=== PATIENT | male | born 1985 | race Caucasian/White ===

== ENCOUNTER 2019-11-24 00:15 | Inpatient (IN) | payer OTHER ==
[2019-11-24 01:19] VITALS: BMI 31.7
--- NOTE | 2019-11-24 01:33 | PDOC ---
Attending Attestation - Resident Resident Name: Perez Stephen - ED Attending Attestation I have performed the following: I have examined & evaluated the patient, The case was reviewed & discussed with the resident, I agree w/resident's findings & plan - HPI HPI: 11/24/19 04:53 see resident hpi - Physicial Exam PE: 11/24/19 04:53 agree with resident exam - Medical Decision Making 11/24/19 04:54 34-year-old male with history of A. fib complaining of palpitations Patient took a dose of flecainide at home without relief Patient given Cardizem 20 mg IV push x2 with some decrease in rate from the 150s to 160s down to 110s to 120s Cardizem 5 mg/h IV drip started Patient to be admitted to ICU for further management
--- NOTE | 2019-11-24 01:35 | PDOC ---
History of Present Illness - General Chief Complaint: Irregular Heart Beat Stated Complaint: ELEVATED HEART RATE Time Seen by Provider: 11/24/19 01:33 History Source: Patient Exam Limitations: No Limitations - History of Present Illness Initial Comments: 11/24/19 01:46 34 yo M with a hx of atrial fibrillation (last episode of RVR 3 years ago) not on AC presents to the emergency department with palpitations. Per the patient, his palpitations began suddenly at 8:15 pm per the patient. Denies recent infectious process and substance use. He currently is having SOB without overt chest pain. He was given a prescription for flecainamide to take for palpitations. He took 200 mg prior to his presentation. Denies the following: fevers, ears/nose/throat pain, abdominal pain, dysuria, hematuria, and diarrhea. , Allergies: aspirin Past History - Past Medical History Allergies/Adverse Reactions: Allergies Allergy/AdvReac Type Severity Reaction Status Date / Time aspirin Allergy Rash Verified 11/24/19 00:31 Home Medications: Ambulatory Orders Anastrozole [Arimidex -] 0.25 mg PO Q3D #0 tab 11/24/19 Apixaban [Eliquis -] 5 mg PO BID #60 tablet 11/24/19 Eszopiclone 2 mg PO DAILY PRN #0 tab 11/24/19 Flecainide Acetate 100 mg PO BID #60 tablet 11/24/19 Metoprolol Succinate [Toprol XL -] 50 mg PO BID #60 tab.sr.24h 11/24/19 Sildenafil Citrate 20 mg PO DAILY PRN 11/24/19 Testosterone Cypionate 100 mg WEEKLY 11/24/19 Cardiac Disorders: Yes (Paroxysmal afib) COPD: No Disorders: Yes (hypogonadism) HTN: Yes Hypercholesterolemia: Yes - Psycho Social/Smoking Cessation Hx Smoking History: Former smoker Have you smoked in the past 12 months: No Number of Cigarettes Smoked Daily: 10 If you are a former smoker, when did you quit?: 2013 Information on smoking cessation initiated: No Hx Alcohol Use: No Drug/Substance Use Hx: No Review of Systems - Review of Systems Able to Perform ROS?: Yes Is the patient limited Lebanese proficient: No Constitutional: No: Chills, Diaphoresis, Fever, Weakness HEENTM: No: Eye Pain, Ear Pain, Nose Pain, Throat Pain, Mouth Pain Respiratory: Yes: Shortness of Breath. No: Cough, Hemoptysis Cardiac (ROS): Yes: Palpitations, Chest Tightness. No: Chest Pain ABD/GI: No: Constipated, Diarrhea, Nausea, Poor Appetite, Poor Fluid Intake, Rectal Bleeding, Vomiting, Tarry Stools : No: Burning, Dysuria, Hematuria, Incontinence Musculoskeletal: No: Back Pain, Joint Pain, Neck Pain Integumentary: No: Rash Neurological: No: Headache Psychiatric: No: Change in Appetite Endocrine: No: Unexplained Weight Loss Hematologic/Lymphatic: No: Anemia *Physical Exam - Vital Signs Last Vital Signs Temp Pulse Resp BP Pulse Ox 97.8 F 80 16 134/91 99 11/24/19 00:25 11/24/19 00:25 11/24/19 00:25 11/24/19 00:11/24/19 00:25 - Physical Exam General Appearance: Yes: Nourished, Appropriately Dressed. No: Apparent Distress, Intoxicated, Obese HEENT: positive: EOMI, TAMARA, Normal Voice, Symmetrical, Pharynx Normal, Hearing Grossly Normal. negative: Pale Conjunctivae, Scleral Icterus (R), Scleral Icterus (L), Muffled/Hoarse voice, Pharyngeal Erythema, Tonsillar Exudate, Tonsillar Erythema, Nasal Congestion, Excessive drooling Neck: positive: Trachea midline, Supple. negative: Tender, Lymphadenopathy (R) , Lymphadenopathy (L) Respiratory/Chest: positive: Lungs Clear, Normal Breath Sounds. negative: Chest Tender, Respiratory Distress, Accessory Muscle Use Cardiovascular: positive: S1, S2, Tachycardia, Irregularly Irregular. negative : Systolic Murmur Gastrointestinal/Abdominal: positive: Normal Bowel Sounds, Flat, Soft. negative : Tender Lymphatic: negative: Adenopathy Musculoskeletal: positive: Normal Inspection. negative: CVA Tenderness, Vertebral Tenderness Extremity: positive: Normal Capillary Refill, Normal Inspection, Normal Range of Motion. negative: Tender Integumentary: positive: Normal Color, Dry, Warm. negative: Swelling, Ecchymosis Neurologic: positive: Alert ED Treatment Course - LABORATORY CBC & Chemistry Diagram: 11/24/19 08:25 11/24/19 08:25 Medical Decision Making - Critical Care Time Total Critical Care Time (minutes): 30 Critical Care Statement: The care of this patient involved high complexity decision making to prevent further life threatening deterioration of the patient 's condition and/or to evaluate & treat vital organ system(s) failure or risk of failure. - Medical Decision Making 34 yo M with a hx of atrial fibrillation (last episode of RVR 3 years ago) not on AC presents to the emergency department with palpitations. Per the patient, his palpitations began suddenly at 8:15 pm per the patient. Initial vitals: Initial Vital Signs Temp Pulse Resp BP Pulse Ox 97.8 F 80 16 134/91 99 11/24/19 00:25 11/24/19 00:25 11/24/19 00:25 11/24/19 00:25 11/24/19 00:25 Work up: ddx: patient presents with afib with rvr. last episode 7 years ago plan is to get cbc, cmp, troponin, tsh, cxr. intervention: 20 mg of diltiazem. Laboratory Tests 11/24/19 11/24/19 11/24/19 02:00 02:00 02:00 WBC 7.7 RBC 5.56 Hgb 16.2 Hct 48.3 MCV 87.0 MCH 29.1 MCHC 33.5 RDW 14.1 Plt Count 341 MPV 7.0 L Absolute Neuts (auto) 4.3 Neutrophils % 56.0 Lymphocytes % 32.8 Monocytes % 9.8 Eosinophils % 1.0 Basophils % 0.4 Nucleated RBC % 0 PT with INR INR Sodium 139 Potassium 4.1 Chloride 104 Carbon Dioxide 27 Anion Gap 8 BUN 10.9 Creatinine 0.9 Est GFR (CKD-EPI)AfAm 130.52 Est GFR (CKD-EPI)NonAf 112.62 Random Glucose 107 H Calcium 9.8 Magnesium 2.3 Total Bilirubin 0.3 AST 25 ALT 41 Alkaline Phosphatase 56 Creatine Kinase Cancelled 330 H Creatine Kinase Index 0.4 CK-MB (CK-2) 1.4 Troponin I Cancelled 0.08 H Total Protein 7.7 Albumin 4.0 Triglycerides 232 H Cholesterol 183 Total LDL Cholesterol 122 H HDL Cholesterol 28 L TSH 2.02 11/24/19 02:00 WBC RBC Hgb Hct MCV MCH MCHC RDW Plt Count MPV Absolute Neuts (auto) Neutrophils % Lymphocytes % Monocytes % Eosinophils % Basophils % Nucleated RBC % PT with INR 13.50 H INR 1.14 H Sodium Potassium Chloride Carbon Dioxide Anion Gap BUN Creatinine Est GFR (CKD-EPI)AfAm Est GFR (CKD-EPI)NonAf Random Glucose Calcium Magnesium Total Bilirubin AST ALT Alkaline Phosphatase Creatine Kinase Creatine Kinase Index CK-MB (CK-2) Troponin I Total Protein Albumin Triglycerides Cholesterol Total LDL Cholesterol HDL Cholesterol TSH trop positive at 0.08, likely secondary to demand ischemia [place] of heart rate was 180-190s 11/24/19 02:12 136/97 with HR of 112 bpm s/p 20 mg of diltiazem. 11/24/19 02:38 Reassessed. 150-160s. HR. Will start the patient on diltiazem drip and admit for refractory afib with rvr resistant to initial bolus of diltiazem. CXR: No acute pathology noted. EKG: Atrial fibrillation with RVR with no ST elevations or depressions. No TWI. Discharge - Discharge Information Problems reviewed: Yes Clinical Impression/Diagnosis: Atrial fibrillation - Follow up/Referral - Patient Discharge Instructions - Post Discharge Activity
[2019-11-24] MEDS ORDERED: METOPROLOL TARTRATE 5 MG/5 ML VIAL IVPUSH ONE (01:45)
[2019-11-24] MEDS ORDERED: SODIUM CHLORIDE 1,000 ML IV STA (01:56)
[2019-11-24] MEDS ORDERED: dilTIAZem HCL 50 MG/10 ML - 10 ML VIAL IVPUSH ONE (01:56)
[2019-11-24] MEDS ORDERED: dilTIAZem HCL 50 MG/10 ML - 10 ML VIAL ONE (02:01)
[2019-11-24 02:15] LABS: BASO % 0.4 % (0-2.0); HEMATOCRIT 48.3 % (35.4-49); HEMOGLOBIN 16.2 GM/dL (11.7-16.9); LYMPH % 32.8 % (8-40); MCH 29.1 pg (25.7-33.7); MCHC 33.5 g/dl (32.0-35.9); MONO % 9.8 % (3.8-10.2); PLATELET COUNT 341 K/MM3 (134-434); RBC 5.56 M/mm3 (4.00-5.60); RDW 14.1 % (11.9-15.9); WHITE BLOOD COUNT 7.7 K/mm3 (4.0-10.0)
[2019-11-24] MEDS ORDERED: DILTIAZEM INJECTION 125 MG in SODIUM CHLORIDE 100 ML IVPB SCH (02:45)
[2019-11-24 02:49] LABS: INR 1.14 (0.83-1.09); PROTHROMBIN TIME (PATIENT) 13.5 SEC (9.7-13.0)
[2019-11-24 02:51] LABS: BILIRUBIN,TOTAL 0.3 mg/dL (0.2-1); BLOOD UREA NITROGEN 10.9 mg/dL (7-18); CALCIUM 9.8 mg/dL (8.5-10.1); CREATININE 0.9 mg/dL (0.55-1.3); MAGNESIUM 2.3 mg/dL (1.8-2.4); POTASSIUM 4.1 mmol/L (3.5-5.1); TOT PROT 7.7 g/dl (6.4-8.2)
--- NOTE | 2019-11-24 04:45 | CONSULT ---
Consultation: REQUESTING PROVIDER: CONSULT REQUEST: We have been asked to medically evaluate this patient for A-fib w/ RVR on cardizem drip. HISTORY OF PRESENT ILLNESS: 34 y.o. M PMH HTN, A-fib diagnosed 8 years qgo presenting for A-fib w/ RVR to 160s. The patient had a leasing machine tender who he has not seen in about 3 years-- at this time, patient was d/c'd from daily flecainamide and was given a prn flecainamide prescription in case he had any further episodes of palpitations. Prior to arrival in ED, the patient took 200mg flecainamide for feeling of palpitations. He says the palpitations started a few hours ago. Denies any chest pain. EKG shows A-fib w/ RVR to 140's. Max rate in ED 160s. In ED he was given IV pushes of Cardizem 20mg & lopressor 5mg and placed on cardizem drip. REVIEW OF SYSTEMS: CONSTITUTIONAL: Absent: fever, chills, diaphoresis, generalized weakness, malaise, loss of appetite, weight change HEENT: Absent: rhinorrhea, nasal congestion, throat pain, throat swelling, difficulty swallowing, mouth swelling, ear pain, eye pain, visual changes CARDIOVASCULAR: palpitations Absent: chest pain, syncope, irregular heart rate, lightheadedness, peripheral edema RESPIRATORY: Absent: cough, shortness of breath, dyspnea with exertion, orthopnea, wheezing, stridor, hemoptysis GASTROINTESTINAL: Absent: abdominal pain, abdominal distension, nausea, vomiting, diarrhea, constipation, melena, hematochezia GENITOURINARY: Absent: dysuria, frequency, urgency, hesitancy, hematuria, flank pain, genital pain MUSCULOSKELETAL: Absent: myalgia, arthralgia, joint swelling, back pain, neck pain SKIN: Absent: rash, itching, pallor HEMATOLOGIC/IMMUNOLOGIC: Absent: easy bleeding, easy bruising, lymphadenopathy, frequent infections ENDOCRINE: Absent: unexplained weight gain, unexplained weight loss, heat intolerance, cold intolerance NEUROLOGIC: Absent: headache, focal weakness or paresthesias, dizziness, unsteady gait, seizure, mental status changes, bladder or bowel incontinence PSYCHIATRIC: Absent: anxiety, depression, suicidal or homicidal ideation, hallucinations. PHYSICAL EXAMINATION Vital Signs - 24 hr 11/24/19 11/24/1911/24/20 00:25 02:00 02:15 Temperature 97.8 F Pulse Rate 80 Pulse Rate [ 160 H 108 H Radial] Respiratory 16 20 20 Rate Blood Pressure 134/91 Blood Pressure 166/155 H 136/97 [Left Arm] O2 Sat by Pulse 99 100 100 Oximetry (%) 11/24/19 03:51 Temperature Pulse Rate Pulse Rate [ 154 H Radial] Respiratory 20 Rate Blood Pressure Blood Pressure 129/84 [Left Arm] O2 Sat by Pulse 100 Oximetry (%) GENERAL: Awake, alert, and fully oriented, in no acute distress. HEENT: No JVD. NCAT LUNGS: Breath sounds equal, clear to auscultation bilaterally. No wheezes, and no crackles. No accessory muscle use. HEART: Irregular rate, normal S1 and S2 without murmur, rub or gallop. ABDOMEN: Soft, nontender, not distended, normoactive bowel sounds. EXTREMITIES: 2+ pulses intact b/l. No perpheral edema NEUROLOGICAL: Cranial nerves II-XII intact PSYCHIATRIC: Cooperative. Good eye contact. Appropriate mood and affect. SKIN: Warm, dry, normal turgor, no rashes or lesions noted. Laboratory Results - last 24 hr 11/24/19 11/24/19 11/24/19 02:00 02:00 02:00 WBC 7.7 RBC 5.56 Hgb 16.2 Hct 48.3 MCV 87.0 MCH 29.1 MCHC 33.5 RDW 14.1 Plt Count 341 MPV 7.0 L Absolute Neuts (auto) 4.3 Neutrophils % 56.0 Lymphocytes % 32.8 Monocytes % 9.8 Eosinophils % 1.0 Basophils % 0.4 Nucleated RBC % 0 PT with INR INR Sodium 139 Potassium 4.1 Chloride 104 Carbon Dioxide 27 Anion Gap 8 BUN 10.9 Creatinine 0.9 Est GFR (CKD-EPI)AfAm 130.52 Est GFR (CKD-EPI)NonAf 112.62 Random Glucose 107 H Calcium 9.8 Magnesium 2.3 Total Bilirubin 0.3 AST 25 ALT 41 Alkaline Phosphatase 56 Creatine Kinase Cancelled 330 H Creatine Kinase Index 0.4 CK-MB (CK-2) 1.4 Troponin I Cancelled 0.08 H Total Protein 7.7 Albumin 4.0 TSH 2.02 11/24/19 02:00 WBC RBC Hgb Hct MCV MCH MCHC RDW Plt Count MPV Absolute Neuts (auto) Neutrophils % Lymphocytes % Monocytes % Eosinophils % Basophils % Nucleated RBC % PT with INR 13.50 H INR 1.14 H Sodium Potassium Chloride Carbon Dioxide Anion Gap BUN Creatinine Est GFR (CKD-EPI)AfAm Est GFR (CKD-EPI)NonAf Random Glucose Calcium Magnesium Total Bilirubin AST ALT Alkaline Phosphatase Creatine Kinase Creatine Kinase Index CK-MB (CK-2) Troponin I Total Protein Albumin TSH Active Medications Generic Name Dose Route Start Last Admin Trade Name Freq PRN Reason Stop Dose Admin Diltiazem HCl 125 mg/ Sodium 125 mls @ 5 mls/hr 11/24/19 02:45 11/24/19 03:52 Chloride IVPB 5 mg/hr TITR FAN 5 mls/hr Administration Protocol 5 MG/HR ASSESSMENT/PLAN: 34 y.o. M PMH HTN, A-fib diagnosed 8 years ago presenting for A-fib w/ RVR to 160s #Cardio -Afib w/ RVR o 160s, rates now in 120-130s -S/p cardizem 20mg & lopressor 5mg IV push -now on cardizem drip -Initial EKG showed s-fib w/ rvr rate 140s, repeat ekg after drip initiated shows a-fib w/rvr rate 130s -trop x1 0.08, f/u repeat -Chadsvasc 1 -HAS-BLED score 1 -Hx HTN -as per patient, on lopressor 25mg bid-- confirm w/ pharmacy in AM -Will need to establish care w/ leasing machine tender for follow up as outpatient -Consulted Dr. Delarosa cardiology for rate control and anticoagulation recommendations #FENLTD -s/p 1L NS bolus -trend lytes replete prn -sodium controlled diet -Left hand peripheral line #PPX -heparin sq Dispo: Visit type - Emergency Visit Emergency Visit: Yes ED Registration Date: 11/24/19 Care time: The patient presented to the Emergency Department on the above date and was hospitalized for further evaluation of their emergent condition. - New Patient This patient is new to me today: Yes Date on this admission: 01/01/20 - Critical Care Critical Care patient: Yes Total Critical Care Time (in minutes): 45 Critical Care Statement: The care of this patient involved high complexity decision making to prevent further life threatening deterioration of the patient's condition and/or to evaluate & treat vital organ system(s) failure or risk of failure. ATTENDING PHYSICIAN STATEMENT I saw and evaluated the patient. I reviewed the resident's note and discussed the case with the resident. I agree with the resident's findings and plan as documented. SUBJECTIVE: OBJECTIVE: ASSESSMENT AND PLAN:
--- NOTE | 2019-11-24 05:13 | HP ---
CHIEF COMPLAINT: Palpitations PCP: Dr Little [facility] HISTORY OF PRESENT ILLNESS: Pt is a 34 y/o M with a significant past medical history of atrial fibrillation (not on anticoagulation) and HTN who presented to [facility] due to palpitations. Pt endorses that he was having intercourse with his spouse when he abruptly felt the sensation of an irregular heart beat; this was around 8:15 pm yesterday evening. Pt states that he has endured a total of three episodes of atrial fibrillation in the past, at ages 19, 21, and 27. Pt was cardioverted all three times. Pt endorses he used to follow with a Nut Sheller at [facility] in [place] but no longer does as his sole conditioner moved to [place]. Pt was placed on Flecanide 50 mg BID by his Nut Sheller in the past however was taken off ever since he had been without an episode for a few years. Pt states he takes Metoprolol 25 BID currently. Furthermore, pt endorses that sometimes his afib is triggered when he tries to urinate. Pt took 200 mg of Flecanide shortly after today's episode of afib as he recalls his sole conditioner informing him to do so if he ever reverted back into atrial fibrillation. When patient realized that his palpitations were not residing, he decided to come to ED. Denies any associated lightheadedness, nausea/vomiting, syncope, chest pain, or shortness of breath. Also denies any illicit drug or alcohol use. ER course was notable for: (1) Atrial Fibrillation w/ RVR @141 BPM. QTc 456. (2) Started on Cardizem Drip (3) BP 166/155 Recent Travel: PAST MEDICAL HISTORY: As above PAST SURGICAL HISTORY: Tonsilectomy FAMILY HISTORY: Father DM, Mother HTN. Social History: Smoking: Former Smoker. 1 PPDX10 years. Denies Alcohol or illicit drug use. Allergies aspirin Allergy (Verified 11/24/19 00:31) Rash HOME MEDICATIONS: Home Medications Medication Instructions Recorded Anastrozole [Arimidex -] 11/24/19 Eszopiclone 11/24/19 Metoprolol Succinate 11/24/19 Sildenafil Citrate 11/24/19 Testosterone Cypionate 11/24/19 REVIEW OF SYSTEMS CONSTITUTIONAL: Absent: fever, chills, diaphoresis, generalized weakness, malaise, loss of appetite, weight change HEENT: Absent: rhinorrhea, nasal congestion, throat pain, throat swelling, difficulty swallowing, mouth swelling, ear pain, eye pain, visual changes CARDIOVASCULAR: PRESENT: palpitations, irregular heart rate RESPIRATORY: Absent: cough, shortness of breath, dyspnea with exertion, orthopnea, wheezing, stridor, hemoptysis GASTROINTESTINAL: Absent: abdominal pain, abdominal distension, nausea, vomiting, diarrhea, constipation, melena, hematochezia GENITOURINARY: Absent: dysuria, frequency, urgency, hesitancy, hematuria, flank pain, genital pain MUSCULOSKELETAL: Absent: myalgia, arthralgia, joint swelling, back pain, neck pain SKIN: Absent: rash, itching, pallor HEMATOLOGIC/IMMUNOLOGIC: Absent: easy bleeding, easy bruising, lymphadenopathy, frequent infections ENDOCRINE: Absent: unexplained weight gain, unexplained weight loss, heat intolerance, cold intolerance NEUROLOGIC: Absent: headache, focal weakness or paresthesias, dizziness, unsteady gait, seizure, mental status changes, bladder or bowel incontinence PSYCHIATRIC: Absent: anxiety, depression, suicidal or homicidal ideation, hallucinations. PHYSICAL EXAMINATION Vital Signs - 24 hr 11/24/19 11/24/19 11/24/19 00:25 02:00 02:15 Temperature 97.8 F Pulse Rate 80 Pulse Rate [ 160 H 108 H Radial] Respiratory 16 20 20 Rate Blood Pressure 134/91 Blood Pressure 166/155 H 136/97 [Left Arm] O2 Sat by Pulse 99 100 100 Oximetry (%) 11/24/19 11/24/19 11/24/19 02:30 03:00 03:51 Temperature Pulse Rate Pulse Rate [ 154 H Radial] Respiratory 20 Rate Blood Pressure Blood Pressure 129/84 [Left Arm] O2 Sat by Pulse 100 100 100 Oximetry (%) GENERAL: Pleasant, AAOX3 NAD HEAD: Normal with no signs of trauma. EYES: EOMI Sclera Clear. EARS, NOSE, THROAT: MMM NECK: Supple LUNGS: CTAB HEART: Irregularly irregular. S1S2 ABDOMEN: Soft, NDNT MUSCULOSKELETAL: FROM LOWER EXTREMITIES: No Significant edema NEUROLOGICAL: Cranial nerves II-XII intact. Normal speech. PSYCHIATRIC: Cooperative. Good eye contact. Appropriate mood and affect. SKIN: Warm, no rashes or lesions appreciated Laboratory Results - last 24 hr 11/24/19 11/24/19 11/24/19 02:00 02:00 02:00 WBC 7.7 RBC 5.56 Hgb 16.2 Hct 48.3 MCV 87.0 MCH 29.1 MCHC 33.5 RDW 14.1 Plt Count 341 MPV 7.0 L Absolute Neuts (auto) 4.3 Neutrophils % 56.0 Lymphocytes % 32.8 Monocytes % 9.8 Eosinophils % 1.0 Basophils % 0.4 Nucleated RBC % 0 PT with INR INR Sodium 139 Potassium 4.1 Chloride 104 Carbon Dioxide 27 Anion Gap 8 BUN 10.9 Creatinine 0.9 Est GFR (CKD-EPI)AfAm 130.52 Est GFR (CKD-EPI)NonAf 112.62 Random Glucose 107 H Calcium 9.8 Magnesium 2.3 Total Bilirubin 0.3 AST 25 ALT 41 Alkaline Phosphatase 56 Creatine Kinase Cancelled 330 H Creatine Kinase Index 0.4 CK-MB (CK-2) 1.4 Troponin I Cancelled 0.08 H Total Protein 7.7 Albumin 4.0 TSH 2.02 11/24/19 02:00 WBC RBC Hgb Hct MCV MCH MCHC RDW Plt Count MPV Absolute Neuts (auto) Neutrophils % Lymphocytes % Monocytes % Eosinophils % Basophils % Nucleated RBC % PT with INR 13.50 H INR 1.14 H Sodium Potassium Chloride Carbon Dioxide Anion Gap BUN Creatinine Est GFR (CKD-EPI)AfAm Est GFR (CKD-EPI)NonAf Random Glucose Calcium Magnesium Total Bilirubin AST ALT Alkaline Phosphatase Creatine Kinase Creatine Kinase Index CK-MB (CK-2) Troponin I Total Protein Albumin TSH ASSESSMENT/PLAN: Pt is a 34 y/o M with a significant past medical history of atrial fibrillation (not on anticoagulation), and HTN who presented to [facility] due to palpitations. #Atrial Fibrillation with Rapid Ventricular Response - Atrial Fibrillation w/ RVR @141 BPM. QTc 456. -Given Cardizem 20 once and Lopressor 5. -Placed On Cardizem Drip while in Emergency Department. Will titrate as needed. -CHADS2-VASc Score is 1. No indication for Anticoagulation at this juncture. -Plavix 75 Daily in light of ASA allergy and CHADS2-VASc of 1. -Cardiology consulted. Appreciated recs. -Echocardiogram to assess for wall motion abnormalities -Repeat EKG in am. -Send TSH -Urine drug screen -Telemetry monitoring #Troponin Leak likely 2/2 AFIB RVR -Trop 0.08. Trend until peak. #HTN -Resume Metoprolol 25 BID. Consider addition of another agent if BP remains elevated. Cardizem drip will also aid in BP control #FEN -No standing Fluids -Monitor Electrolytes -Sodium Controlled Diet #DVT ppx -HEPSQTID #Dispo -Tele Visit type - Emergency Visit Emergency Visit: Yes ED Registration Date: 11/24/19 Care time: The patient presented to the Emergency Department on the above date and was hospitalized for further evaluation of their emergent condition. - New Patient This patient is new to me today: Yes Date on this admission: 11/24/19 - Critical Care Critical Care patient: No ATTENDING PHYSICIAN STATEMENT I saw and evaluated the patient. I reviewed the resident's note and discussed the case with the resident. I agree with the resident's findings and plan as documented. SUBJECTIVE: OBJECTIVE: ASSESSMENT AND PLAN:
--- NOTE | 2019-11-24 05:15 | PN ---
Teaching Attending Note Name of Resident: Froilan Haney ATTENDING PHYSICIAN STATEMENT I saw and evaluated the patient. I reviewed the resident's note and discussed the case with the resident. I agree with the resident's findings and plan as documented. SUBJECTIVE: 34-year-old male with A. fib with RVR presenting with palpitations, found to be tachycardic in the emergency room however otherwise asymptomatic aside from palpitations. In the emergency room given 5 mg IV metoprolol, 5 mg IV diltiazem , heart rate still uncontrolled, was started on diltiazem drip.Chads vas score was 1. Dr. Delarosa was consulted from the emergency room. Patient reported he was taking flecainide but in the past. Was previously evaluated by EP and decided not to have ablation at that time. States that he takes metoprolol succinate 25 mg p.o. daily and that he is compliant with his medication. He denied any excessive EtOH binging, illicit drug use, history of thyroid problems. OBJECTIVE: Last Vital Signs Temp Pulse Resp BP Pulse Ox 97.8 F 154 H 20 129/84 100 11/24/19 00:25 11/24/19 03:51 11/24/19 03:51 11/24/19 03:51 11/24/19 03:51 GENERAL: Well developed, well nourished. Awake and alert. No acute distress. HEENT: Normocephalic, atraumatic. PERRLA, EOMI. No conjunctival pallor. Sclera are non- icteric. Moist mucous membranes. Oropharynx is clear. NECK: Supple. Full ROM. No JVD. Carotid pulses 2+ and symmetric, without bruits. No thyromegaly. No lymphadenopathy. CARDIOVASCULAR: S1, S2, irregularly irregular. Tachycardia PULMONARY: No evidence of respiratory distress. Lungs clear to auscultation bilaterally. No wheezing, rales or rhonchi. ABDOMINAL: Soft. Non-tender. Non-distended. No rebound or guarding. No organomegaly. Normoactive bowel sounds. MUSCULOSKELETAL Normal range of motion at all joints. No bony deformities or tenderness. No CVA tenderness. EXTREMITIES: No cyanosis. No clubbing. No edema. No calf tenderness. SKIN: Warm and dry. Normal capillary refill. No rashes. No jaundice. . PSYCHIATRIC: Cooperative. Good eye contact. Appropriate mood and affect. Abnormal Lab Results 11/24/19 11/24/19 11/24/19 02:00 02:00 02:00 MPV 7.0 L PT with INR 13.50 H INR 1.14 H Random Glucose 107 H Creatine Kinase 330 H Troponin I 0.08 H Imaging studies reviewed ASSESSMENT AND PLAN: Atrial fibrillation with rapid ventricular response. Chads vas score is 1.Noted to have allergy to aspirinrash Admit to telemetry Continue Cardizem drip for rate control titrate as needed Cardiology consult for medication revision Send TSH Urine drug screen Plavix 75 mg p.o. daily due to a chads vas score of 1 and aspirin allergy, if patient agrees Echo Monitor vital signs closely Would likely benefit from outpatient EP evaluation #Troponinemiasuspect secondary to demand ischemia from rapid ventricular response Trend troponin #DVT prophylaxisheparin subcutaneously twice daily
[2019-11-24 08:46] LABS: BASO % 0.6 % (0-2.0); EOS % 0.9 % (0-4.5); HEMATOCRIT 46.1 % (35.4-49); HEMOGLOBIN 15.6 GM/dL (11.7-16.9); LYMPH % 38.1 % (8-40); MCH 29.3 pg (25.7-33.7); MCHC 33.8 g/dl (32.0-35.9); MEAN CELL VOLUME 86.6 fl (80-96); MEAN PLT VOLUME 6.8 fl (7.5-11.1); MONO % 9.1 % (3.8-10.2); NEUT % 51.3 % (42.8-82.8); PLATELET COUNT 317 K/MM3 (134-434); RBC 5.32 M/mm3 (4.00-5.60); WHITE BLOOD COUNT 6.5 K/mm3 (4.0-10.0)
[2019-11-24 09:11] LABS: BLOOD UREA NITROGEN 9.2 mg/dL (7-18)
[2019-11-24 09:12] LABS: ALBUMIN 3.8 g/dl (3.4-5.0); BILIRUBIN,TOTAL 0.5 mg/dL (0.2-1); CALCIUM 9.2 mg/dL (8.5-10.1); MAGNESIUM 2.1 mg/dL (1.8-2.4); PHOSPHOROUS 2.4 mg/dL (2.5-4.9); POTASSIUM 3.8 mmol/L (3.5-5.1); TOT PROT 7.2 g/dl (6.4-8.2)
[2019-11-24 09:14] LABS: INR 1.18 (0.83-1.09)
[2019-11-24 09:40] LABS: ACTIVATED PTT 31.7 SECONDS (25.2-36.5)
[2019-11-24] MEDS ORDERED: HEPARIN NA (PORCINE) 5,000 UNITS/ML 1ML VIAL SQ SCH ×2 (10:00→14:00)
[2019-11-24] MEDS ORDERED: METOPROLOL TARTRATE 50 MG TABLET (FP) PO SCH (10:00)
[2019-11-24] MEDS ORDERED: MUPIROCIN 2% TOPICAL OINTMENT FOR DECOLONIZATION NS SCH (10:00)
[2019-11-24] MEDS ORDERED: CLOPIDOGREL BISULFATE 75 MG TABLET (FP) PO SCH (10:00)
[2019-11-24 11:07] LABS: PH,URINE 8.5 (5.0-8.0); URINE APPEARANCE CLEAR; URINE BILIRUBIN NEGATIVE (NEGATIVE); URINE COLOR YELLOW; URINE GLUCOSE (UA) NEGATIVE (NEGATIVE); URINE KETONE NEGATIVE (NEGATIVE); URINE LEUK ESTERASE NEGATIVE (NEGATIVE); URINE NITRITE NEGATIVE (NEGATIVE); URINE PROTEIN NEGATIVE (NEGATIVE); URINE UROBILINOGEN 0.2 mg/dL (0.2-1.0)
--- NOTE | 2019-11-24 11:48 | PN ---
Progress Note (short form) - Note Progress Note: Chief Complaint: Events noted, notes reviewed, reports persistent palpitations related to paroxysmal atrial fibrillation, denies any chest pain or dyspnea History of Present Illness: Seen and examined in ER as a telemetry hold. Full consult dictated Medications: Current Medications Chlorhexidine Gluconate (Hibiclens For Decolonization -) 1 applic TP HS FAN Clopidogrel Bisulfate (Plavix -) 75 mg PO DAILY [facility] Last Admin: 11/24/19 11:30 Dose: Not Given Heparin Sodium (Porcine) (Heparin -) 5,000 unit SQ TID [facility] Diltiazem HCl 125 mg/ Sodium (Chloride) 125 mls @ 5 mls/hr IVPB TITR [facility]; Protocol Last Titration: 11/24/19 08:33 Dose: 10 mg/hr, 10 mls/hr Metoprolol Succinate (Toprol Xl -) 50 mg PO DAILY [facility] Last Admin: 11/24/19 10:09 Dose: 50 mg Mupirocin (Bactroban Ointment (For Decolonization) -) 1 applic NS BID [facility] Stop: 11/29/19 09:59 Review of Systems - Review of Systems Constitutional: denies: Chills, Fever Cardiovascular: As noted above Respiratory: denies: Cough or Sputum Production Gastrointestinal: denies: Nausea, Vomiting, Diarrhea, Constipation or Abdominal Pain Neurological: denies: Headaches Vital Signs: Last Vital Signs Temp Pulse Resp BP Pulse Ox 97.8 F 90 18 128/87 99 11/24/19 08:00 11/24/19 11:00 11/24/19 11:00 11/24/19 11:00 11/24/19 11:00 Intake & Output 11/21/19 11/22/19 11/23/19 11/24/19 23:59 23:59 23:59 23:59 Weight 215 lb Neck: Supple Negative JVD No Bruit Respiratory: Clear to A&P bilaterally Cardiovascular: S1 S2 Irregularly Irregular Gastrointestinal: Soft Benign Normal Bowel Sounds Ext: Negative Edema Labs: Troponin, BNP 11/24/19 11/24/19 02:00 02:00 Troponin I Cancelled 0.08 H CBC, BMP 11/24/19 08:25 11/24/19 08:25 Hepatic Panel Total Bilirubin 0.5 mg/dL (0.2-1) 11/24/19 08:25 AST 21 U/L (15-37) 11/24/19 08:25 ALT 40 U/L (13-61) 11/24/19 08:25 Alkaline Phosphatase 54 U/L (45-117) 11/24/19 08:25 Albumin 3.8 g/dl (3.4-5.0) 11/24/19 08:25 INR, PTT INR 1.18 (0.83-1.09) H 11/24/19 08:25 Assessment/Plan ASSESSMENT: 1. Paroxysmal atrial fibrillation with rapid ventricular response [id number] score of 0, prior history of recurrent arrhythmia/pill in a pocket approach with Flecainide 2. Elevated Troponin I level/demand ischemic injury related to above 3. HTN 4. Hypercholesterolemia/Hypertriglycerdemia/mixed dyslipidemia, not at goal 5. BRIT to excluded in view of above PLAN: 1. Continue Toprol-XL and titrate dosage as needed and as tolerated (additional IV Lopressor to assist with rate control), hemodynamics permitting and attempt to D/C IV Cardizem 2. Initiate Flecainide at 150 mg twice daily- 3. Initiate DOAC's/Eliquis although patient's [id number] score is 0 4. If lipid profile remains not at goal recommend the addition of statins with Vascepa therapy 5. Echocardiography to evaluate LV function/LA size and valvular function 6. If arrhythmia persists plan to proceed with elective synchronized cardioversion without ALEXANDER guidance if performed within 24-48 hours from initial onset but A/C to be continued for at least 3-4 week post conversion 7. Eventual outpatient referral to EP service at [facility] for possible future PVI/ RFA Facundo Muller M.D.
[2019-11-24] MEDS ORDERED: METOPROLOL TARTRATE 5 MG/5 ML VIAL IVPUSH PRN (11:56)
--- NOTE | 2019-11-24 11:57 | EKG ---
Test Reason : Blood Pressure : / mmHG Vent. Rate : 130 BPM Atrial Rate : 115 BPM P-R Int : 000 ms QRS Dur : 098 ms QT Int : 312 ms P-R-T Axes : 000 054 020 degrees QTc Int : 459 ms ATRIAL FIBRILLATION WITH RAPID VENTRICULAR RESPONSE ABNORMAL ECG Confirmed by MD DUC, PIERRE ([id number]) on 11/24/2019 11:57:10 AM Referred By: Confirmed By:PIERRE XAVIER MD
[2019-11-24 11:58] LABS: COCAINE, UR NEGATIVE ng/ml (CUTOFF=300); METHADONE, UR NEGATIVE ng/ml (CUTOFF=300); OPIATES, URI NEGATIVE ng/ml (CUTOFF=300); PHENCYCLIDINE,URINE NEGATIVE ng/ml (CUTOFF=25); URINE AMPHETAMINES NEGATIVE ng/ml (CUTOFF=500); URINE BARBITURATES NEGATIVE ng/ml (CUTOFF=200); URINE BENZODIAZEPINES NEGATIVE ng/ml (CUTOFF=200)
--- NOTE | 2019-11-24 11:58 | EKG ---
Test Reason : Blood Pressure : / mmHG Vent. Rate : 141 BPM Atrial Rate : 111 BPM P-R Int : 000 ms QRS Dur : 102 ms QT Int : 298 ms P-R-T Axes : 000 063 028 degrees QTc Int : 456 ms ATRIAL FIBRILLATION WITH RAPID VENTRICULAR RESPONSE ABNORMAL ECG Confirmed by MD DUC, PIERRE ([id number]) on 11/24/2019 11:57:56 AM Referred By: Confirmed By:PIERRE XAVIER MD
[2019-11-24] MEDS ORDERED: APIXABAN 5 MG TABLET PO SCH (12:00)
[2019-11-24] MEDS ORDERED: APIXABAN 5 MG TABLET ONE (12:44)
--- NOTE | 2019-11-24 12:54 | CONS ---
DATE OF CONSULTATION: 11/24/2019 CONSULTATION REQUESTED BY: Hospitalist service CHIEF COMPLAINT: Palpitations. HISTORY: A 34-year-old male of descent with known history of paroxysmal atrial fibrillation, CHADS2-VASc score of 0 on nzdk-eb-j-pocket approach with Flecainide, hypertensive cardiovascular disease who denied any history of diabetes mellitus or hypercholesterolemia who presented to [facility] with some onset of palpitations referable to recurrent atrial fibrillation while being intimate with his partner. Patient reported first episode of paroxysmal atrial fibrillation at age 19 triggered by an esophageal spasm, and subsequently he had recurrences and was treated conservatively. Treated with beta-michel therapy and in addition dfkf-ck-l-pocket approach with Flecainide. Last episode of reported atrial fibrillation was 5 years ago. Pulmonary vein isolation radiofrequency ablation procedure was entertained in the past, but since patient has had no recurrences, it was deferred. Patient, beside the above-noted palpitations, denied any dizziness or lightheadedness. Patient denied any chest discomfort. Patient denied any dyspnea. Patient does not report any history of orthopnea, paroxysmal or nocturnal dyspnea, or peripheral edema. Patient does not report any history of fatigue or tiredness. PAST MEDICAL HISTORY: Paroxysmal atrial fibrillation, iolj-lm-m-pocket approach, CHADS VASc score of 0, hypertension on Toprol XL therapy. SOCIAL HISTORY: Nonsmoker. FAMILY HISTORY: No history of premature coronary artery disease or sudden cardiac . ALLERGIES: ASPIRIN in form of a rash. MEDICAL THERAPY: At home included Flecainide 100-mg tablet to be administered as needed, Toprol at 25 mg once daily, testosterone injection for testosterone deficiency. REVIEW OF SYSTEMS: Head and Neck: Denies headache, photophobia, blurring of vision. Respiratory: No cough or sputum production. Cardiovascular: As noted above. Gastrointestinal: Denies nausea, vomiting, diarrhea, abdominal discomfort. Genitourinary: No symptoms reported. Musculoskeletal: No symptoms reported. PHYSICAL EXAMINATION: Vital Signs: Blood pressure is 128/87 mmHg, pulse rate is 90 beats per minute irregularly irregular. Head and Neck: Pupils equal and reactive to light and accommodation. Extraocular muscles are intact. Anicteric sclerae. Negative JVD. No bruits appreciated. Chest: Clear to auscultation, percussion. Cardiovascular: S1, S2. Irregularly irregular. No murmurs, clicks, or gallops. Abdomen: Soft, benign. Normoactive bowel sounds. Extremities: Negative edema. Intact distal pulses. No calf tenderness. Electrocardiogram reveals atrial fibrillation with rapid ventricular response. Chest x-ray was noted. No acute pathology noted. CBC revealed white cell count 6.5, hemoglobin 15.6, platelet count 317, INR 1.18. Basic metabolic profile revealed sodium 138, potassium 3.8, BUN 9.2, creatinine 1.0, glucose 110. Troponin 0.08. Cholesterol 183, LDL 122, HDL 28, triglycerides 232, TSH 2.02. ASSESSMENT: 1. Paroxysmal atrial fibrillation with rapid ventricular response, CHADS VASc score of 0, prior history of recurrent arrhythmia, emwe-sq-d-pocket approach with Flecainide. 2. Elevated troponin I level, demand ischemic injury related to above. 3. hypertension. 4. Hypercholesterolemia/hypertriglyceridemia/mixed dyslipidemia not at goal. 5. Obstructive sleep apnea to be excluded in view of the above-noted presentation with recurrent paroxysmal atrial fibrillation. RECOMMENDATION: 1. Continuation of Toprol XL therapy and titration of dosage as needed and as tolerated. Additional IV Lopressor to assist with rate control hemodynamics permitting and attempt to discontinue IV Cardizem therapy. 2. Initiation of Flecainide therapy at 150 mg twice daily. 3. Initiation of anticoagulation therapy with Eliquis, although patient's CHADS VASc score of 0. 4. If lipid profile remains not at goal, initiation of statin therapy in conjunction with Vascepa therapy. 5. Echocardiography for evaluation left ventricular systolic function, left atrial measurement, and valvular function. 6. If arrhythmia persists despite the above-noted therapy adjustments, plan to proceed with elective synchronized cardioversion without transesophageal echocardiography guidance if performed within the initial 24-48 hours from onset but anticoagulation therapy to be continued at least for 3-4 weeks post successful cardioversion. 7. Eventual outpatient referral to EP service at [facility] for purpose of future pulmonary vein isolation radiofrequency ablation procedure. Thank you for kind referral. SYL SALGADO M.D. SHUKRI/[id number]
--- NOTE | 2019-11-24 13:13 | PN ---
Physical Exam: SUBJECTIVE: Patient seen and examined at bedside in ED. He was admitted overnight. He states that it feels like he is acutely aware of his heartbeat and describes it as rats running around in his chest. He is not currently in pain, has no SANON, denies numbness tingling, is not SOB and is able to move/talk without complaint. ROS neg. OBJECTIVE: Vital Signs Temp Pulse Resp BP Pulse Ox 97.8 F 98 H 20 109/63 99 11/24/19 08:00 11/24/19 15:00 11/24/19 15:00 11/24/19 15:00 11/24/19 15:00 GENERAL: AOx3, in no acute distress. HEAD: NCAT EYES: GERARDO, EOMI, conjunctiva clear. ENT: Ears normal, nares patent, oropharynx clear without exudates. Moist mucous membranes. NECK: Normal range of motion, supple without lymphadenopathy, JVD, or masses. LUNGS: CTAB. No wheezes, and no crackles. No accessory muscle use. HEART: Irregularly irregular rhythm, tachicardiac to 111-121 ABDOMEN: Obese, soft, NT, BS present in all 4 quadrants, non-distended, no JVD, MUSCULOSKELETAL: No bony deformities or tenderness. No CVA tenderness. UPPER EXTREMITIES: 2+ pulses, warm, well-perfused. No cyanosis. No clubbing. No peripheral edema. LOWER EXTREMITIES: 2+ pulses, warm, well-perfused. No calf tenderness. No peripheral edema. NEUROLOGICAL: No focal deficits. Cranial nerves II-XII intact. Normal speech. Gait not appreciated. PSYCHIATRIC: Cooperative. Good eye contact. Appropriate mood and affect. SKIN: Warm, dry, normal turgor, no rashes or lesions noted, normal capillary refill. Laboratory Results - last 24 hr 11/24/19 11/24/19 11/24/19 02:00 02:00 02:00 WBC 7.7 RBC 5.56 Hgb 16.2 Hct 48.3 MCV 87.0 MCH 29.1 MCHC 33.5 RDW 14.1 Plt Count 341 MPV 7.0 L Absolute Neuts (auto) 4.3 Neutrophils % 56.0 Lymphocytes % 32.8 Monocytes % 9.8 Eosinophils % 1.0 Basophils % 0.4 Nucleated RBC % 0 PT with INR INR PTT (Actin FS) Sodium 139 Potassium 4.1 Chloride 104 Carbon Dioxide 27 Anion Gap 8 BUN 10.9 Creatinine 0.9 Est GFR (CKD-EPI)AfAm 130.52 Est GFR (CKD-EPI)NonAf 112.62 Random Glucose 107 H Hemoglobin A1c % Calcium 9.8 Phosphorus Magnesium 2.3 Total Bilirubin 0.3 AST 25 ALT 41 Alkaline Phosphatase 56 Creatine Kinase Cancelled 330 H Creatine Kinase Index 0.4 CK-MB (CK-2) 1.4 Troponin I Cancelled 0.08 H Total Protein 7.7 Albumin 4.0 Triglycerides 232 H Cholesterol 183 Total LDL Cholesterol 122 H HDL Cholesterol 28 L TSH 2.02 Urine Color Urine Appearance Urine pH Ur Specific [place] Urine Protein Urine Glucose (UA) Urine Ketones Urine Blood Urine Nitrite Urine Bilirubin Urine Urobilinogen Ur Leukocyte Esterase Opiates Screen Methadone Screen Barbiturate Screen Phencyclidine Screen Ur Amphetamines Screen MDMA (Ecstasy) Screen Benzodiazepines Screen Cocaine Screen U Marijuana (THC) Screen 11/24/19 11/24/19 11/24/19 02:00 05:00 08:25 WBC 6.5 RBC 5.32 Hgb 15.6 Hct 46.1 MCV 86.6 MCH 29.3 MCHC 33.8 RDW 14.0 Plt Count 317 MPV 6.8 L Absolute Neuts (auto) 3.3 Neutrophils % 51.3 Lymphocytes % 38.1 Monocytes % 9.1 Eosinophils % 0.9 Basophils % 0.6 Nucleated RBC % 0 PT with INR 13.50 H INR 1.14 H PTT (Actin FS) Sodium Potassium Chloride Carbon Dioxide Anion Gap BUN Creatinine Est GFR (CKD-EPI)AfAm Est GFR (CKD-EPI)NonAf Random Glucose Hemoglobin A1c % 5.6 Calcium Phosphorus Magnesium Total Bilirubin AST ALT Alkaline Phosphatase Creatine Kinase Creatine Kinase Index CK-MB (CK-2) Troponin I Total Protein Albumin Triglycerides Cholesterol Total LDL Cholesterol HDL Cholesterol TSH Urine Color Urine Appearance Urine pH Ur Specific [place] Urine Protein Urine Glucose (UA) Urine Ketones Urine Blood Urine Nitrite Urine Bilirubin Urine Urobilinogen Ur Leukocyte Esterase Opiates Screen Methadone Screen Barbiturate Screen Phencyclidine Screen Ur Amphetamines Screen MDMA (Ecstasy) Screen Benzodiazepines Screen Cocaine Screen U Marijuana (THC) Screen 11/24/19 11/24/19 11/24/19 08:25 08:25 10:35 WBC RBC Hgb Hct MCV MCH MCHC RDW Plt Count MPV Absolute Neuts (auto) Neutrophils % Lymphocytes % Monocytes % Eosinophils % Basophils % Nucleated RBC % PT with INR 14.00 H INR 1.18 H PTT (Actin FS) 31.7 Sodium 138 Potassium 3.8 Chloride 105 Carbon Dioxide 26 Anion Gap 6 L BUN 9.2 Creatinine 1.0 Est GFR (CKD-EPI)AfAm 114.91 Est GFR (CKD-EPI)NonAf 99.15 Random Glucose 110 H Hemoglobin A1c % Calcium 9.2 Phosphorus 2.4 L Magnesium 2.1 Total Bilirubin 0.5 AST 21 ALT 40 Alkaline Phosphatase 54 Creatine Kinase 318 H Creatine Kinase Index 0.4 CK-MB (CK-2) 1.4 Troponin I 0.02 Total Protein 7.2 Albumin 3.8 Triglycerides Cholesterol Total LDL Cholesterol HDL Cholesterol TSH Urine Color Yellow Urine Appearance Clear Urine pH 8.5 H Ur Specific [place] 1.007 L Urine Protein Negative Urine Glucose (UA) Negative Urine Ketones Negative Urine Blood Negative Urine Nitrite Negative Urine Bilirubin Negative Urine Urobilinogen 0.2 Ur Leukocyte Esterase Negative Opiates Screen Methadone Screen Barbiturate Screen Phencyclidine Screen Ur Amphetamines Screen MDMA (Ecstasy) Screen Benzodiazepines Screen Cocaine Screen U Marijuana (THC) Screen 11/24/19 10:35 WBC RBC Hgb Hct MCV MCH MCHC RDW Plt Count MPV Absolute Neuts (auto) Neutrophils % Lymphocytes % Monocytes % Eosinophils % Basophils % Nucleated RBC % PT with INR INR PTT (Actin FS) Sodium Potassium Chloride Carbon Dioxide Anion Gap BUN Creatinine Est GFR (CKD-EPI)AfAm Est GFR (CKD-EPI)NonAf Random Glucose Hemoglobin A1c % Calcium Phosphorus Magnesium Total Bilirubin AST ALT Alkaline Phosphatase Creatine Kinase Creatine Kinase Index CK-MB (CK-2) Troponin I Total Protein Albumin Triglycerides Cholesterol Total LDL Cholesterol HDL Cholesterol TSH Urine Color Urine Appearance Urine pH Ur Specific [place] Urine Protein Urine Glucose (UA) Urine Ketones Urine Blood Urine Nitrite Urine Bilirubin Urine Urobilinogen Ur Leukocyte Esterase Opiates Screen Negative Methadone Screen Negative Barbiturate Screen Negative Phencyclidine Screen Negative Ur Amphetamines Screen Negative MDMA (Ecstasy) Screen Negative Benzodiazepines Screen Negative Cocaine Screen Negative U Marijuana (THC) Screen Negative Active Medications Anastrozole (Arimidex -) 0.25 mg PO Q72H [facility] Apixaban (Eliquis -) 5 mg PO BID [facility] Last Admin: 11/24/19 12:53 Dose: 5 mg Chlorhexidine Gluconate (Hibiclens For Decolonization -) 1 applic TP HS [facility] Flecainide Acetate (Tambacor -) 150 mg PO BID [facility] Last Admin: 11/24/19 15:19 Dose: 150 mg Metoprolol Succinate (Toprol Xl -) 50 mg PO BID [facility] Metoprolol Tartrate (Lopressor Injection -) 5 mg IVPUSH Q4H PRN PRN Reason: TACHYCARDIA Mupirocin (Bactroban Ointment (For Decolonization) -) 1 applic NS BID [facility] Stop: 11/29/19 09:59 ASSESSMENT/PLAN: 34 y/o male PMH hypogonadism and a-fib s/p 2 cardioversions (2003 and 2005) c/o palpitations and admitted for care of rapid a-fib with RVR. # A-fib with RVR - S/p felcanide 200 mg at home prior to admission - Cardizem drip stopped - Cardio consulted - Metoprolol 50 mg BID, flecanide 150 mg BID - Possible cardioversion if not controlled and so for now add Eliquis 5 mg po bid - Echo pending - Chronic BRIT likely a contributing factor # Troponemia - 0.02 from 0.08 - Likely 2/2 demand # Elevated lipid values - LDL 122 - 10 year risk fro CAD is 1.2 %. - Recommend diet and exercise # Hypogonadism - Pt reports being seen by Dr. Ly - Current home regimen: Anastrazole 0.25 mg q3days and testosterone 100 mg injection q weekly # F/E/N - PO - Cont. to monitor - Regular diet # DVT prophylaxis - On Eliquis # Disposition - Telemetry George Velasquez MD Visit type - Emergency Visit Emergency Visit: No - New Patient This patient is new to me today: Yes Date on this admission: 11/24/19 - Critical Care Critical Care patient: No ATTENDING PHYSICIAN STATEMENT I saw and evaluated the patient. I reviewed the resident's note and discussed the case with the resident. I agree with the resident's findings and plan as documented. SUBJECTIVE: OBJECTIVE: ASSESSMENT AND PLAN:
[2019-11-24] MEDS ORDERED: FLECAINIDE ACETATE 50 MG TABLET PO SCH (14:00)
--- NOTE | 2019-11-24 14:23 | PN ---
Teaching Attending Note Name of Resident: Elissa Plasenciakashifarron ATTENDING PHYSICIAN STATEMENT I saw and evaluated the patient. I reviewed the resident's note and discussed the case with the resident. I agree with the resident's findings and plan as documented. SUBJECTIVE: Patient seen and examined in the ER. Awake and alert. AFib, low 100's. No CP or SOB. Fiance at the bedside. He does snore and he does have witnessed apneas. He does have Excessive Daytime Sleepiness (EDS). Intake & Output 11/21/19 11/22/19 11/23/19 11/24/19 23:59 23:59 23:59 23:59 Weight 215 lb Last Vital Signs Temp Pulse Resp BP Pulse Ox 97.8 F 90 18 128/87 99 11/24/19 08:00 11/24/19 11:00 11/24/19 11:00 11/24/19 11:00 11/24/19 11:00 Active Medications Apixaban (Eliquis -) 5 mg PO BID [facility] Last Admin: 11/24/19 12:53 Dose: 5 mg Chlorhexidine Gluconate (Hibiclens For Decolonization -) 1 applic TP HS [facility] Flecainide Acetate (Tambacor -) 150 mg PO BID [facility] Metoprolol Succinate (Toprol Xl -) 50 mg PO BID [facility] Metoprolol Tartrate (Lopressor Injection -) 5 mg IVPUSH Q4H PRN PRN Reason: TACHYCARDIA Mupirocin (Bactroban Ointment (For Decolonization) -) 1 applic NS BID [facility] Stop: 11/29/19 09:59 GENERAL: Awake, alert, and fully oriented, in no acute distress. HEENT: No JVD. NCAT LUNGS: Breath sounds equal, clear to auscultation bilaterally. No wheezes, and no crackles. No accessory muscle use. HEART: Irregular rate, normal S1 and S2 without murmur, rub or gallop. ABDOMEN: Soft, nontender, not distended, normoactive bowel sounds. EXTREMITIES: 2+ pulses intact b/l. No perpheral edema NEUROLOGICAL: Non-focal PSYCHIATRIC: Cooperative. Good eye contact. Appropriate mood and affect. SKIN: Warm, dry, normal turgor, no rashes or lesions noted. Laboratory Results - last 24 hr 11/24/19 11/24/19 11/24/19 02:00 02:00 02:00 WBC 7.7 RBC 5.56 Hgb 16.2 Hct 48.3 MCV 87.0 MCH 29.1 MCHC 33.5 RDW 14.1 Plt Count 341 MPV 7.0 L Absolute Neuts (auto) 4.3 Neutrophils % 56.0 Lymphocytes % 32.8 Monocytes % 9.8 Eosinophils % 1.0 Basophils % 0.4 Nucleated RBC % 0 PT with INR INR Sodium 139 Potassium 4.1 Chloride 104 Carbon Dioxide 27 Anion Gap 8 BUN 10.9 Creatinine 0.9 Est GFR (CKD-EPI)AfAm 130.52 Est GFR (CKD-EPI)NonAf 112.62 Random Glucose 107 H Calcium 9.8 Magnesium 2.3 Total Bilirubin 0.3 AST 25 ALT 41 Alkaline Phosphatase 56 Creatine Kinase Cancelled 330 H Creatine Kinase Index 0.4 CK-MB (CK-2) 1.4 Troponin I Cancelled 0.08 H Total Protein 7.7 Albumin 4.0 TSH 2.02 11/24/19 02:00 WBC RBC Hgb Hct MCV MCH MCHC RDW Plt Count MPV Absolute Neuts (auto) Neutrophils % Lymphocytes % Monocytes % Eosinophils % Basophils % Nucleated RBC % PT with INR 13.50 H INR 1.14 H Sodium Potassium Chloride Carbon Dioxide Anion Gap BUN Creatinine Est GFR (CKD-EPI)AfAm Est GFR (CKD-EPI)NonAf Random Glucose Calcium Magnesium Total Bilirubin AST ALT Alkaline Phosphatase Creatine Kinase Creatine Kinase Index CK-MB (CK-2) Troponin I Total Protein Albumin TSH ASSESSMENT/PLAN: Rapid AFib HTN High clinical suspicion of Obstructive Sleep Apnea Syndrome Will need formal sleep testing as an outpatient as this is mostly likely exacerbating his AFib Patient was seen by Cardiology, plan to have him take his PO Flecainide and he has been started on Eliquis. No smoking was discussed Supplemental O2 as needed Will follow if remains admitted Dr Cid
--- NOTE | 2019-11-24 15:18 | PN ---
Teaching Attending Note Name of Resident: George Velasquez ATTENDING PHYSICIAN STATEMENT I saw and evaluated the patient. I reviewed the resident's note and discussed the case with the resident. I agree with the resident's findings and plan as documented. SUBJECTIVE: seen at 9:30 am No fever or chills. had palpitations . no cp . no OSB , no cough . OBJECTIVE: NAd ,awake, alert , oriented, and cooperative Lungs: CTAB CV: irreg irreg , rate 120s on tele Ext : No edema , no erythema. Abd: soft, NT, Nd , NL BS, No hepatojugular reflux ASSESSMENT AND PLAN: 34 y/o man with h/o A fib s/p 2 cardioversions , s/p flecainide treatment , who presented with papitations and was found to have A fib with RVR 1- A fib with RVR: No signs of infection . TSH nl. - cardizem gtt - started toprol - appreciated cardiac input. d/w Dr. patino . Flecainide and eliquis added - possible cardioversion if not controlled - Echo pending 2- Lipid panel noted: -LDL 122. 10 year risk fro CAD is 1.2 %. hold off any stains - life style modification : excercise, healthy diet 3- h/o hypogonadism
--- NOTE | 2019-11-24 16:46 | ECHO ---
Name: DAVID MOSLEY Exam:Adult Echocardiogram Study Date: 11/24/2019 08:41 AM Age: 34 yrs Reason For Study: valve fxn Height: 69 in Weight: 215 lb BSA: 2.1 m2 MMode/2D Measurements & Calculations IVSd: 1.1 cm Ao root diam: 3.0 cm LVIDd: 4.1 cm LA dimension: 3.3 cm LVIDs: 2.8 cm LVPWd: 0.94 cm EDV(Teich): 74.0 ml LVOT diam: 2.0 cm ESV(Teich): 28.4 ml LAV (MOD-bp): 48.7 ml Doppler Measurements & Calculations MV E max shahriar: 105.0 cm/sec Ao V2 max: 137.1 cm/sec MV A max shahriar: 73.2 cm/sec Ao max P.5 mmHg MV E/A: 1.4 MV dec time: 0.06 sec KARINA(V,D): 2.4 cm2 LV V1 max P.3 mmHg PA V2 max: 123.5 cm/sec LV V1 max: 103.8 cm/sec PA max P.1 mmHg Med Peak E' Shahriar: 10.4 cm/sec PI Vmax: 167.0 cm/sec Med E/e': 10.1 Lat Peak E' Shahriar: 8.2 cm/sec Lat E/e': 12.9 Procedure A complete two-dimensional transthoracic echocardiogram was performed (2D, M-mode, Doppler and color flow Doppler). The patient was in atrial fibrillation with rapid ventricular response during the exam with a heart rate exceeding 100 bpm. Left Ventricle The left ventricular size, thickness and function are normal. Ejection Fraction = 60%. Right Ventricle The right ventricle is normal in size and function. Atria Normal left and right atrial size and function. Mitral Valve The mitral valve is grossly normal. There is trace mitral regurgitation. Tricuspid Valve The tricuspid valve is not well visualized, but is grossly normal. There is trace tricuspid regurgita tion. There was insufficient TR detected to calculate RV systolic pressure. Aortic Valve The aortic valve is trileaflet. No hemodynamically significant valvular aortic stenosis. Pulmonic Valve The pulmonic valve is not well visualized. Trace pulmonic valvular regurgitation. Great Vessels The aortic root is normal size. Interpretation Summary The patient was in atrial fibrillation with rapid ventricular response during the exam with a heart r ate exceeding 100 bpm. The left ventricular size, thickness and function are normal Normal left and right atrial size and function. There is trace mitral regurgitation. There is trace tricuspid regurgitation. There was insufficient TR detected to calculate RV systolic pressure. MD Alejandro Odom 11/24/2019 04:46 PM
[2019-11-24 18:55] VITALS: BP 139/100; PULSE 82; TEMP 98.6
--- NOTE | 2019-11-24 18:58 | HOSP ---
Physical Examination Vital Signs: Vital Signs Temperature 98.6 F 11/24/19 18:50 Pulse Rate 82 11/24/19 18:50 Respiratory Rate 20 11/24/19 18:50 Blood Pressure 139/100 11/24/19 18:50 O2 Sat by Pulse Oximetry (%) 100 11/24/19 18:50 Pt asymptomatic and has converted into sinus rythym per stat EKG ordered. Discussed with Dr. Pedraza that pt can follow up with cardiology as o/p and it is safe to discharge. Educated patient regarding the adverse effects of eliquis including spinal bleed and informed him to come to the ER if having any signs of back pain, weakness, numbness or tingling in his extremities. Pt was told to follow up with his EP physician and informed me that he has an appt for tomorrow. Labs: CBC, BMP 11/24/19 08:25 11/24/19 08:25 Visit type - Emergency Visit Emergency Visit: Yes ED Registration Date: 11/24/19 Care time: The patient presented to the Emergency Department on the above date and was hospitalized for further evaluation of their emergent condition. - New Patient This patient is new to me today: Yes Date on this admission: 11/24/19 - Critical Care Critical Care patient: No
--- NOTE | 2019-11-24 19:08 | DS ---
Physical Exam: SUBJECTIVE: Patient seen and examined at bedside in ED. He was admitted overnight. He states that it feels like he is acutely aware of his heartbeat and describes it as rats running around in his chest. He is not currently in pain, has no SANON, denies numbness tingling, is not SOB and is able to move/talk without complaint. ROS neg OBJECTIVE: Vital Signs Period Temp Pulse Resp BP Sys/Tuttle Pulse Ox Last 24 Hr 97.8 F-98.6 F 78-160 16-20 109-166/63-155 98-100 PHYSICAL EXAM GENERAL: AOx3, in no acute distress. HEAD: NCAT EYES: GERARDO, EOMI, conjunctiva clear. ENT: Ears normal, nares patent, oropharynx clear without exudates. Moist mucous membranes. NECK: Normal range of motion, supple without lymphadenopathy, JVD, or masses. LUNGS: CTAB. No wheezes, and no crackles. No accessory muscle use. HEART: Irregularly irregular rhythm, tachicardiac to 111-121 ABDOMEN: Obese, soft, NT, BS present in all 4 quadrants, non-distended, no JVD, MUSCULOSKELETAL: No bony deformities or tenderness. No CVA tenderness. UPPER EXTREMITIES: 2+ pulses, warm, well-perfused. No cyanosis. No clubbing. No peripheral edema. LOWER EXTREMITIES: 2+ pulses, warm, well-perfused. No calf tenderness. No peripheral edema. NEUROLOGICAL: No focal deficits. Cranial nerves II-XII intact. Normal speech. Gait not appreciated. PSYCHIATRIC: Cooperative. Good eye contact. Appropriate mood and affect. SKIN: Warm, dry, normal turgor, no rashes or lesions noted, normal capillary refill. LABS 11/24/19 11/24/19 11/24/19 02:00 02:00 02:00 WBC 7.7 RBC 5.56 Hgb 16.2 Hct 48.3 MCV 87.0 MCH 29.1 MCHC 33.5 RDW 14.1 Plt Count 341 MPV 7.0 L Absolute Neuts (auto) 4.3 Neutrophils % 56.0 Lymphocytes % 32.8 Monocytes % 9.8 Eosinophils % 1.0 Basophils % 0.4 Nucleated RBC % 0 PT with INR INR PTT (Actin FS) Sodium 139 Potassium 4.1 Chloride 104 Carbon Dioxide 27 Anion Gap 8 BUN 10.9 Creatinine 0.9 Est GFR (CKD-EPI)AfAm 130.52 Est GFR (CKD-EPI)NonAf 112.62 Random Glucose 107 H Hemoglobin A1c % Calcium 9.8 Phosphorus Magnesium 2.3 Total Bilirubin 0.3 AST 25 ALT 41 Alkaline Phosphatase 56 Creatine Kinase Cancelled 330 H Creatine Kinase Index 0.4 CK-MB (CK-2) 1.4 Troponin I Cancelled 0.08 H Total Protein 7.7 Albumin 4.0 Triglycerides 232 H Cholesterol 183 Total LDL Cholesterol 122 H HDL Cholesterol 28 L TSH 2.02 Urine Color Urine Appearance Urine pH Ur Specific [place] Urine Protein Urine Glucose (UA) Urine Ketones Urine Blood Urine Nitrite Urine Bilirubin Urine Urobilinogen Ur Leukocyte Esterase Opiates Screen Methadone Screen Barbiturate Screen Phencyclidine Screen Ur Amphetamines Screen MDMA (Ecstasy) Screen Benzodiazepines Screen Cocaine Screen U Marijuana (THC) Screen 11/24/19 11/24/19 11/24/19 02:00 05:00 08:25 WBC 6.5 RBC 5.32 Hgb 15.6 Hct 46.1 MCV 86.6 MCH 29.3 MCHC 33.8 RDW 14.0 Plt Count 317 MPV 6.8 L Absolute Neuts (auto) 3.3 Neutrophils % 51.3 Lymphocytes % 38.1 Monocytes % 9.1 Eosinophils % 0.9 Basophils % 0.6 Nucleated RBC % 0 PT with INR 13.50 H INR 1.14 H PTT (Actin FS) Sodium Potassium Chloride Carbon Dioxide Anion Gap BUN Creatinine Est GFR (CKD-EPI)AfAm Est GFR (CKD-EPI)NonAf Random Glucose Hemoglobin A1c % 5.6 Calcium Phosphorus Magnesium Total Bilirubin AST ALT Alkaline Phosphatase Creatine Kinase Creatine Kinase Index CK-MB (CK-2) Troponin I Total Protein Albumin Triglycerides Cholesterol Total LDL Cholesterol HDL Cholesterol TSH Urine Color Urine Appearance Urine pH Ur Specific [place] Urine Protein Urine Glucose (UA) Urine Ketones Urine Blood Urine Nitrite Urine Bilirubin Urine Urobilinogen Ur Leukocyte Esterase Opiates Screen Methadone Screen Barbiturate Screen Phencyclidine Screen Ur Amphetamines Screen MDMA (Ecstasy) Screen Benzodiazepines Screen Cocaine Screen U Marijuana (THC) Screen 11/24/19 11/24/19 11/24/19 08:25 08:25 10:35 WBC RBC Hgb Hct MCV MCH MCHC RDW Plt Count MPV Absolute Neuts (auto) Neutrophils % Lymphocytes % Monocytes % Eosinophils % Basophils % Nucleated RBC % PT with INR 14.00 H INR 1.18 H PTT (Actin FS) 31.7 Sodium 138 Potassium 3.8 Chloride 105 Carbon Dioxide 26 Anion Gap 6 L BUN 9.2 Creatinine 1.0 Est GFR (CKD-EPI)AfAm 114.91 Est GFR (CKD-EPI)NonAf 99.15 Random Glucose 110 H Hemoglobin A1c % Calcium 9.2 Phosphorus 2.4 L Magnesium 2.1 Total Bilirubin 0.5 AST 21 ALT 40 Alkaline Phosphatase 54 Creatine Kinase 318 H Creatine Kinase Index 0.4 CK-MB (CK-2) 1.4 Troponin I 0.02 Total Protein 7.2 Albumin 3.8 Triglycerides Cholesterol Total LDL Cholesterol HDL Cholesterol TSH Urine Color Yellow Urine Appearance Clear Urine pH 8.5 H Ur Specific [place] 1.007 L Urine Protein Negative Urine Glucose (UA) Negative Urine Ketones Negative Urine Blood Negative Urine Nitrite Negative Urine Bilirubin Negative Urine Urobilinogen 0.2 Ur Leukocyte Esterase Negative Opiates Screen Methadone Screen Barbiturate Screen Phencyclidine Screen Ur Amphetamines Screen MDMA (Ecstasy) Screen Benzodiazepines Screen Cocaine Screen U Marijuana (THC) Screen 11/24/19 10:35 WBC RBC Hgb Hct MCV MCH MCHC RDW Plt Count MPV Absolute Neuts (auto) Neutrophils % Lymphocytes % Monocytes % Eosinophils % Basophils % Nucleated RBC % PT with INR INR PTT (Actin FS) Sodium Potassium Chloride Carbon Dioxide Anion Gap BUN Creatinine Est GFR (CKD-EPI)AfAm Est GFR (CKD-EPI)NonAf Random Glucose Hemoglobin A1c % Calcium Phosphorus Magnesium Total Bilirubin AST ALT Alkaline Phosphatase Creatine Kinase Creatine Kinase Index CK-MB (CK-2) Troponin I Total Protein Albumin Triglycerides Cholesterol Total LDL Cholesterol HDL Cholesterol TSH Urine Color Urine Appearance Urine pH Ur Specific [place] Urine Protein Urine Glucose (UA) Urine Ketones Urine Blood Urine Nitrite Urine Bilirubin Urine Urobilinogen Ur Leukocyte Esterase Opiates Screen Negative Methadone Screen Negative Barbiturate Screen Negative Phencyclidine Screen Negative Ur Amphetamines Screen Negative MDMA (Ecstasy) Screen Negative Benzodiazepines Screen Negative Cocaine Screen Negative U Marijuana (THC) Screen Negative HOSPITAL COURSE: Date of Admission:11/24/19 34 y/o male PMH hypogonadism and a-fib s/p 2 cardioversions (2003 and 2005) c/o palpitations and admitted for care of rapid a-fib with RVR. Pt practices, " pill in the pocket" technique in which he took felcanide 200 mg at home prior to admission. Cardiology was consulted and rec f/u in out-pt clinic. He was initially on Cardizem drip in ED, which was stopped. Metoprolol 50 mg BID, flecanide 150 mg BID maintained. Chronic BRIT likely a contributing factor. During his stay he demonstrated a troponemia 0.08 to 0.02, likely 2/2 demand. He also demonstrated elevated lipid values LDL 122; 10 year risk fro CAD is 1.2 %. He was edcuated on the need for diet and exercise. He is a pt of Dr. Ly for his hypogonadism. His current home regimen includes Anastrazole 0.25 mg q3days and testosterone 100 mg injection q weekly. He was dc to home. Date of Discharge: 11/24/19 George Velasquez MD Minutes to complete discharge: 40 Discharge Summary Problems reviewed: Yes Reason For Visit: ATRIAL FIBRILATION WITH RAPID VENTRICULAR RESPONSE Current Active Problems A-fib (Acute) Atrial fibrillation (Acute) - Instructions Diet, Activity, Other Instructions: - you have converted to sinus rhythm - you will be on Flecainide 100 mg twice day - you will be on eliquis 5 mg twice a day . ( blood thinner, so you need to watch for any bleeding, avoid falls, and reports any bleed to your doctor ) - toprol ( metoprolol succinate has been increased to 50 mg twice a day - please follow with your EP doctor - please follow with your dr. Muller if your current baggage agent supervisor is no longer available - Report any palpitations to your doctor. - The duration of the Eliquis is for 4 weeks only . Then stop, unless recommended otherwise by your baggage agent supervisor. please make sure you call your doctor before you run out of your medications Referrals: Facundo Muller MD [Staff Physician] - 1 Week Disposition: HOME - Home Medications Comprehensive Discharge Medication List: Ambulatory Orders Anastrozole [Arimidex -] 0.25 mg PO Q3D #0 tab 11/24/19 Apixaban [Eliquis -] 5 mg PO BID #60 tablet 11/24/19 Eszopiclone 2 mg PO DAILY PRN #0 tab 11/24/19 Flecainide Acetate 100 mg PO BID #60 tablet 11/24/19 Metoprolol Succinate [Toprol XL -] 50 mg PO BID #60 tab.sr.24h 11/24/19 Sildenafil Citrate 20 mg PO DAILY PRN 11/24/19 Testosterone Cypionate 100 mg WEEKLY 11/24/19 This patient is new to me today: Yes Date on this admission: 12/16/19 Emergency Visit: Yes ED Registration Date: 11/24/19 Care time: The patient presented to the Emergency Department on the above date and was hospitalized for further evaluation of their emergent condition. Critical Care patient: No - Discharge Referral Referred to [facility] No ATTENDING PHYSICIAN STATEMENT I saw and evaluated the patient. I reviewed the resident's note and discussed the case with the resident. I agree with the resident's findings and plan as documented. SUBJECTIVE: OBJECTIVE: ASSESSMENT AND PLAN:
[2019-11-24] MEDS ORDERED: CHLORHEXIDINE GLUCONATE 4% CLEANSER FOR DECOLONIZATION TP SCH (22:00)
[2019-11-25] MEDS ORDERED: ANASTROZOLE 1 MG TABLET PO SCH (10:00)
--- NOTE | 2019-12-06 14:18 | EKG ---
Test Reason : Blood Pressure : / mmHG Vent. Rate : 079 BPM Atrial Rate : 079 BPM P-R Int : 162 ms QRS Dur : 108 ms QT Int : 370 ms P-R-T Axes : 055 004 048 degrees QTc Int : 424 ms NORMAL SINUS RHYTHM NORMAL ECG Confirmed by MD XAVIER GREGORY ([id number]) on 12/06/2019 2:17:59 PM Referred By: Confirmed By:PIERRE XAVIER MD
== END 2019-11-24 19:50 | disposition home or self-care (01) | DRG 310 ==
LOC: JER 00:15 → JERBED 04:43
PROVIDERS: ADMIT Internal Medicine; ATTEND Internal Medicine
DX: I48.0 Paroxysmal atrial fibrillation (principal); I10 Essential (primary) hypertension
CPT/HCPCS: 36415; 71045-TC-FY; 80053; 80061; 80307; 81003; 82550; 82553; 83036; 83721; 83735; 84100; 84443; 84484; 85025; 85610; 85730; 93005; 93010; 93306-TC; 99285-25; J7030

== ENCOUNTER 2020-05-07 12:02 | Emergency (ER) | payer OTHER ==
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
[2020-05-07 12:35] VITALS: BP 151/97; PULSE 98; TEMP 98.4; BMI 26.6
[2020-05-07] MEDS ORDERED: ACETAMINOPHEN 500 MG TABLET (FP) PO ONE (13:15)
[2020-05-07] MEDS ORDERED: ACETAMINOPHEN 500 MG TABLET (FP) ONE (13:18)
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
== END 2020-05-07 13:40 | disposition home or self-care (01) ==
LOC: JERFT 12:02 → JER 12:02 → JERFT 13:40
DX: S09.90XA Unspecified injury of head, initial encounter (principal); S40.012A Contusion of left shoulder, initial encounter; S60.011A Contusion of right thumb without damage to nail, initial encounter; S96.911A Strain of unspecified muscle and tendon at ankle and foot level, right foot, initial encounter; V49.40XA Driver injured in collision with unspecified motor vehicles in traffic accident, initial encounter
CPT/HCPCS: 70450-TC; 73030-TC-LT-FY; 73140-TC-RT-FY; 73610-TC-RT-FY; 99285-25

== ENCOUNTER 2023-05-20 05:36 | Day surgery (SDC) | payer OTHER ==
[2023-05-17 12:29] VITALS: BMI 28.8
[~2023-05-20 05:36] MED LIST: BUPIVACAINE HCL/PF 2.5 MG/ML - 30 ML VIAL IJ ONE; LIDOCAINE HCL 1%, 10 MG/ML (20ML VIAL) INF ONE
[2023-05-20] MEDS ORDERED: BUPIVACAINE HCL/PF 0.25% (2.5MG/ML) 10 ML VIAL ONE (10:35)
[2023-05-20] MEDS ORDERED: BACITRACIN ZINC 15 GM TUBE TOPICAL OINTMENT ONE (10:35)
[2023-05-20] MEDS ORDERED: PROPOFOL 20 ML ONE (10:54)
[2023-05-20] MEDS ORDERED: LIDOCAINE HCL/PF 2% SDV 5ML VIAL ONE (10:54)
[2023-05-20] MEDS ORDERED: MIDAZOLAM HCL 2 MG/2 ML SINGLE DOSE VIAL ONE (10:54)
[2023-05-20] MEDS ORDERED: PROPOFOL 40 ML ONE (11:27)
[2023-05-20] MEDS ORDERED: DEXAMETHASONE SOD PHOSPHATE 4 MG/1 ML VIAL ONE (11:34)
[2023-05-20] MEDS ORDERED: ceFAZolin SODIUM 1 GM VIAL ONE (11:34)
[2023-05-20] MEDS ORDERED: KETOROLAC TROMETHAMINE 30 MG/1 ML VIAL ONE (11:34)
[2023-05-20] MEDS ORDERED: ONDANSETRON 4 MG/2 ML VIAL ONE (11:34)
[2023-05-20] MEDS ORDERED: ceFAZolin SODIUM 1 GM VIAL IVPB ONE (11:40)
[2023-05-20] MEDS ORDERED: LIDOCAINE HCL 1%, 10 MG/ML (20ML VIAL) INF ONE (11:43)
[2023-05-20] MEDS ORDERED: oxyCODONE HCL 5 MG TABLET PO PRN ×3 (12:06→12:11)
[2023-05-20] MEDS ORDERED: PROMETHAZINE HCL 25 MG/1 ML VIAL IVPB PRN (12:11)
[2023-05-20] MEDS ORDERED: ONDANSETRON 4 MG/2 ML VIAL IVPUSH PRN (12:11)
[2023-05-20] MEDS ORDERED: ACETAMINOPHEN 1000 MG/100 ML BAG IVPB ONE (12:11)
[2023-05-20] MEDS ORDERED: LACTATED RINGERS SOLUTION 1,000 ML IV SCH (12:15)
[2023-05-20] MEDS ORDERED: DEXTROSE 5%-0.45% SALINE 1,000 ML IV SCH (12:15)
[2023-05-20] MEDS ORDERED: ACETAMINOPHEN INJECTION 100 ML IVPB ONE (12:33)
[2023-05-20 16:17] VITALS: RESP 20; TEMP 98.3
[2023-05-20 16:23] VITALS: BP 117/62; PULSE 70
== END 2023-05-20 15:04 | disposition home or self-care (01) ==
LOC: JASU-SURG 05:36
PROVIDERS: ATTEND Urology
PROC: 0VTTXZZ Resection of Prepuce, External Approach (ICD-10-PCS; principal; 2023-05-20 15:30)
DX: N47.1 Phimosis (principal)
CPT/HCPCS: 88304-TC; 94760

== ENCOUNTER 2023-10-02 16:15 | Emergency (ER) | payer OTHER ==
[2023-10-02 16:38] VITALS: BP 176/109; PULSE 85; RESP 18; TEMP 98.2; BMI 31.0
== END 2023-10-02 17:44 | disposition left against medical advice (07) ==
LOC: JER 16:15
DX: R51.9 Headache, unspecified (principal)
CPT/HCPCS: 99281-25